=== PATIENT | female | born 1950 | race Caucasian/White ===

== ENCOUNTER 2024-04-18 06:36 | Day surgery (SDC) | payer MEDICARE ==
[~2024-04-18] VITALS: Ht 162.6 cm; Wt 86.1 kg
[~2024-04-18 06:36] MED LIST: ATOR1TAB21 PO; ATROPINE SULFATE 1% OPHTH SOLN 2ML BTL OD SCH; LEVO88TA3 PO; LIDOCAINE 3.5 % 1ML OPHTH TOPICAL GEL OU ONE; OFLOXACIN 0.3 % (OCUFLOX) OPTH SOL 5ML OD ONE; OMEG10002 PO; PHENYLEPHRINE 10% OPHTH SOL 5ML OD PRN; PHENYLEPHRINE 2.5% OPHTH SOL 2ML OD SCH; THERTAB52 PO; TROPICAMIDE 1% OPHTH SOLN 15ML OD SCH; VITA100024 PO; VITA180C2 PO; VITA200016 PO; VITA80004 PO; VITATAB73 PO; XALA0.007 OU
[2024-04-18] MEDS ORDERED: MIDAZOLAM INJ 2MG/2ML VIAL As Ordered ONE (08:09)
[2024-04-18] MEDS ORDERED: fentaNYL 100 MCG/2 ML INJECTION As Ordered ONE (08:09)
[2024-04-18] MEDS: CEFUROXIME 1MG/0.1ML INTRACAMERAL INJ As Ordered ONE (08:32)
[2024-04-18] MEDS: BSS IRRIG/VANCO(10MG)/TOBRA(5MG)/EPINEPH(1:1000-0.5CC)500ML BAG-ORONLY As Ordered ONE (08:32)
[2024-04-18] MEDS: LIDOCAINE 1% SDV 5ML VIAL As Ordered ONE (08:32)
[2024-04-18 08:38] VITALS: BP 124/74; TEMP 98.7; O2SAT 95
== END 2024-04-18 08:51 | disposition home or self-care (01) ==
LOC: M SDC 06:36
PROVIDERS: ATTEND Ophthalmology
DX: H25.11 Age-related nuclear cataract, right eye (principal); Z87.891 Personal history of nicotine dependence; E03.9 Hypothyroidism, unspecified; K21.9 Gastro-esophageal reflux disease without esophagitis
CPT/HCPCS: 66984; J0697; J2250; J3010; V2632

== ENCOUNTER 2024-05-02 08:01 | Day surgery (SDC) | payer MEDICARE ==
[~2024-05-02] VITALS: Ht 162.6 cm; Wt 86.3 kg
[~2024-05-02 08:01] MED LIST changes: -ATROPINE SULFATE 1% OPHTH SOLN 2ML BTL OD SCH; -LIDOCAINE 3.5 % 1ML OPHTH TOPICAL GEL OU ONE; -OFLOXACIN 0.3 % (OCUFLOX) OPTH SOL 5ML OD ONE; -PHENYLEPHRINE 10% OPHTH SOL 5ML OD PRN; +PHENYLEPHRINE 10% OPHTH SOL 5ML OS PRN; -PHENYLEPHRINE 2.5% OPHTH SOL 2ML OD SCH; -TROPICAMIDE 1% OPHTH SOLN 15ML OD SCH
[2024-05-02] MEDS: LIDOCAINE 3.5 % 1ML OPHTH TOPICAL GEL OU ONE (09:11)
[2024-05-02] MEDS: OFLOXACIN 0.3 % (OCUFLOX) OPTH SOL 5ML OS ONE (09:11)
[2024-05-02] MEDS: TROPICAMIDE 1% OPHTH SOLN 15ML OS SCH (09:12)
[2024-05-02] MEDS: PHENYLEPHRINE 2.5% OPHTH SOL 2ML OS SCH (09:12)
[2024-05-02] MEDS: ATROPINE SULFATE 1% OPHTH SOLN 2ML BTL OS SCH (09:12)
[2024-05-02] MEDS ORDERED: fentaNYL 100 MCG/2 ML INJECTION As Ordered ONE (09:38)
[2024-05-02] MEDS ORDERED: MIDAZOLAM INJ 2MG/2ML VIAL As Ordered ONE (09:38)
[2024-05-02] MEDS: LIDOCAINE 1% SDV 5ML VIAL As Ordered ONE (09:59)
[2024-05-02] MEDS: BSS IRRIG/VANCO(10MG)/TOBRA(5MG)/EPINEPH(1:1000-0.5CC)500ML BAG-ORONLY As Ordered ONE (10:00)
[2024-05-02] MEDS: CEFUROXIME 1MG/0.1ML INTRACAMERAL INJ As Ordered ONE (10:00)
[2024-05-02 10:09] VITALS: BP 151/91; TEMP 98.9; O2SAT 96
== END 2024-05-02 10:22 | disposition home or self-care (01) ==
LOC: M SDC 08:01 → EDUNIT# 13:00
PROVIDERS: ATTEND Ophthalmology
DX: H25.12 Age-related nuclear cataract, left eye (principal); E03.9 Hypothyroidism, unspecified; Z79.899 Other long term (current) drug therapy; Z79.890 Hormone replacement therapy; Z87.891 Personal history of nicotine dependence